=== PATIENT | male | born 1990 | race African-American/Black ===

== ENCOUNTER 2016-05-09 16:22 | Inpatient (IN) | payer OTHER ==
[~2016-05-09] VITALS: Ht 185.4 cm; Wt 91.9 kg
[2016-05-09 16:48] LABS: HEMATOCRIT 40.9 % (38.0-50.0); MCH 26.5 PG (29.0-34.0); MCHC 36.4 G/DL (30.0-36.0); MCV 72.6 FL (86-99); RBC DIS.WIDTH-CV 15.4 % (11.8-14.6); RBC DIS.WIDTH-SD 39.9 % (39-53); RED BLOOD COUNT 5.63 M/uL (4.00-5.50); WHITE BLOOD COUNT 11.8 K/uL (4.1-10.2)
[2016-05-09 16:52] LABS: CHLORIDE 105 mEq/L (99-109); POTASSIUM 4.5 mEq/L (3.7-5.4); SODIUM 141 mEq/L (136-147)
[2016-05-09 16:54] LABS: GLUCOSE 153 mg/dL (70-99)
[2016-05-09 16:55] LABS: ANION GAP 14 MEQ/L (2-14)
[2016-05-09 16:56] LABS: TOTAL BILIRUBIN 0.7 mg/dL (0.0-1.0)
[2016-05-09 16:57] LABS: SERUM ETHYL ALCOHOL < 10 mg/dL
[2016-05-09 16:58] LABS: ADD MIUA? YES; BILIRUBIN NEGATIVE; BLOOD NEGATIVE; COLOR YELLOW ((YELLOW)); GLUCOSE (STRIP) NEGATIVE; KETONES NEGATIVE; LEUKOCYTES NEGATIVE; NITRITE NEGATIVE; PROTEIN (STRIP) 30; SPECIFIC GRAVITY 1.017 (1.000-1.030); UROBILINOGEN 0.2 MG/DL (0.2-1.0)
[2016-05-09 16:58] LABS: ALKALINE PHOSPHATASE 60 IU/L (3-129)
[2016-05-09 16:59] LABS: UREA NITROGEN (BUN) 25 mg/dL (9-23)
[2016-05-09 17:00] LABS: GFR ESTIMATE (CALCULATED) 25 mL/min/
[2016-05-09 17:01] LABS: CREATINE KINASE 381 IU/L (1-294)
[2016-05-09 17:04] LABS: BACTERIA NONE SEEN /HPF; EPITHELIAL CELLS NONE SEEN /HPF; MUCUS TRACE /LPF; RED BLOOD CELLS 0-5 /HPF (0-5); WHITE BLOOD CELLS 0-5 /HPF (0-5)
[2016-05-09 17:06] LABS: AMPHETAMINE NEGATIVE (500 ng/mL); BARBITURATES NEGATIVE (200 ng/mL); BENZODIAZEPINES NEGATIVE (150 ng/mL); COCAINE PRESUMPTIVE POSITIVE (150 ng/mL); INTERNAL CONTROLS VALID? YES; METHADONE NEGATIVE (200 ng/mL); METHAMPHETAMINE PRESUMPTIVE POSITIVE (500 ng/mL); OPIATES (MORPHINE) PRESUMPTIVE POSITIVE (100 ng/mL); OXYCODONE NEGATIVE (100 ng/mL); PHENCYCLIDINE NEGATIVE (25 ng/mL); PROPOXYPHENE NEGATIVE (300 ng/mL); THC CANNABINOIDS NEGATIVE (50 ng/mL); TRICYCLIC ANTIDEPRESSANTS NEGATIVE (300 ng/mL)
[2016-05-09 17:07] LABS: ADD MEDTOX COMMENT Y
[2016-05-09 17:28] LABS: HEMATOLOGY COMMENT 1 SMEAR COMPATIBLE; PLATELET COUNT 136 K/uL (156-360)
[2016-05-09] MEDS ORDERED: ACYCLOVIR200 MG PO (21:24)
[2016-05-09 21:25] LABS: APPEARANCE CLEAR/COLORLESS
[2016-05-09 21:26] LABS: RED CELL AREA COUNTED 18; RED CELL COUNT 0 /MM^3 (0-1); RED CELL DILUTION 1; WBC AREA COUNTED 18; WBC DILUTION 1; WHITE CELL COUNT 5 /MM^3 (0-5); WHITE CELL RAW COUNT 9
[2016-05-09 21:45] LABS: CSF EOSINOPHILS 0 % (0-25); MONO RAW COUNT 67; MONONUCLEAR WBC'S 100 % (50-90); POLYNUCLEAR WBC'S 0 % (0-3)
[2016-05-09 22:36] LABS: TROP-I INTERPRETATION NEGATIVE; TROPONIN-I 0.07 ng/mL (0.0-0.30)
[2016-05-09 23:00] VITALS: BP 108/71
[2016-05-10 06:20] LABS: ALKALINE PHOSPHATASE 41 IU/L (3-129); ANION GAP 9 MEQ/L (2-14); CHLORIDE 110 MEQ/L (99-109); POTASSIUM 3.8 MEQ/L (3.7-5.4); SAMPLE HEMOLYSIS CHECK 0; SAMPLE ICTERIC CHECK 0; SAMPLE LIPEMIA CHECK 0; SODIUM 142 MEQ/L (136-147); TOTAL BILIRUBIN 0.7 MG/DL (0.0-1.0); UREA NITROGEN (BUN) 18 mg/dL (9-23)
[2016-05-10 06:34] LABS: GFR ESTIMATE (CALCULATED) > 59 mL/min/; GLUCOSE 87 mg/dL (70-99)
[2016-05-10 06:47] LABS: TROP-I INTERPRETATION NEGATIVE; TROPONIN-I 0.06 ng/mL (0.0-0.30)
[2016-05-10 06:51] LABS: HEMATOCRIT 36.5 % (38.0-50.0); MCH 26.7 PG (29.0-34.0); MCHC 35.6 G/DL (30.0-36.0); MCV 75.1 FL (86-99); RBC DIS.WIDTH-CV 15.4 % (11.8-14.6); RBC DIS.WIDTH-SD 41.9 % (39-53); RED BLOOD COUNT 4.86 M/uL (4.00-5.50); WHITE BLOOD COUNT 8.9 K/uL (4.1-10.2)
[2016-05-10 06:55] LABS: CK-MB 21.3 ng/mL (0.0-4.9)
[2016-05-10 06:58] LABS: TOTAL CK 1619 IU/L (1-294)
[2016-05-10 06:59] LABS: CREATINE KINASE 1619 IU/L (1-294)
[2016-05-10 07:40] LABS: PLATELET COUNT 128 K/uL (156-360)
[2016-05-10 08:26] VITALS: BP 131/82
[2016-05-10 11:12] LABS: ALKALINE PHOSPHATASE 41 IU/L (3-129); ANION GAP 9 MEQ/L (2-14); CHLORIDE 110 MEQ/L (99-109); GFR ESTIMATE (CALCULATED) > 59 mL/min/; GLUCOSE 79 mg/dL (70-99); POTASSIUM 3.9 MEQ/L (3.7-5.4); SAMPLE HEMOLYSIS CHECK 0; SAMPLE ICTERIC CHECK 0; SAMPLE LIPEMIA CHECK 0; SODIUM 142 MEQ/L (136-147); TOTAL BILIRUBIN 0.7 MG/DL (0.0-1.0); UREA NITROGEN (BUN) 17 mg/dL (9-23)
[2016-05-10 11:15] LABS: CK-MB 15.5 ng/mL (0.0-4.9)
[2016-05-10 11:20] LABS: TROP-I INTERPRETATION NEGATIVE; TROPONIN-I 0.04 ng/mL (0.0-0.30)
[2016-05-10 11:59] VITALS: BP 127/67
[2016-05-10 12:17] LABS: HBSG INDEX 0.18; HPCA INDEX 0.12
[2016-05-10 12:18] LABS: ANTI-HEPATITIS A VIRUS (IGM) Nonreactive
[2016-05-10 12:19] LABS: ANTI-HEPATITIS B CORE (IGM) Nonreactive; HBC IgM INDEX 0.08; HIV INDEX 0.06; HIV-1/2 AB/AG COMBO Nonreactive
[2016-05-10 13:37] LABS: TOTAL CK 1470 IU/L (1-294)
[2016-05-10 13:41] LABS: CREATINE KINASE 1470 IU/L (1-294)
[2016-05-10 15:42] VITALS: BP 133/80
[2016-05-10 19:36] VITALS: BP 128/75
[2016-05-10 23:42] VITALS: BP 126/79
[2016-05-11 07:33] VITALS: BP 132/85
[2016-05-11 10:15] LABS: HEMATOCRIT 35.4 % (38.0-50.0); MCH 26.8 PG (29.0-34.0); MCHC 35.9 G/DL (30.0-36.0); MCV 74.8 FL (86-99); RBC DIS.WIDTH-CV 15.3 % (11.8-14.6); RBC DIS.WIDTH-SD 41.8 % (39-53); RED BLOOD COUNT 4.73 M/uL (4.00-5.50)
[2016-05-11 10:18] LABS: WHITE BLOOD COUNT 4.9 K/uL (4.1-10.2)
[2016-05-11 10:33] LABS: CK-MB 5.6 ng/mL (0.0-4.9)
[2016-05-11 10:57] LABS: PLATELET COUNT 141 K/uL (156-360)
[2016-05-11 11:02] LABS: ANION GAP 6 MEQ/L (2-14); CHLORIDE 106 MEQ/L (99-109); GFR ESTIMATE (CALCULATED) > 59 mL/min/; GLUCOSE 95 mg/dL (70-99); POTASSIUM 3.9 MEQ/L (3.7-5.4); SAMPLE HEMOLYSIS CHECK 0; SAMPLE ICTERIC CHECK 0; SAMPLE LIPEMIA CHECK 0; SODIUM 140 MEQ/L (136-147); TOTAL CK 1215 IU/L (1-294); UREA NITROGEN (BUN) 10 mg/dL (9-23)
[2016-05-11 11:03] LABS: CREATINE KINASE 1215 IU/L (1-294)
[2016-05-11 11:26] VITALS: BP 140/86
== END 2016-05-11 15:04 | disposition home or self-care (01) | DRG 918 ==
LOC: EME 16:22 → EDBD 16:22 → EDOF 21:21 → 5SOUTH 21:21
PROVIDERS: Emergency Medicine; Hospitalist; Internal Medicine
DX: T40.601A Poisoning by unspecified narcotics, accidental (unintentional), initial encounter (principal); M62.82 Rhabdomyolysis; N17.9 Acute kidney failure, unspecified; T40.5X1A Poisoning by cocaine, accidental (unintentional), initial encounter; D69.6 Thrombocytopenia, unspecified; R45.6 Violent behavior; R41.82 Altered mental status, unspecified
CPT/HCPCS: 70450; 70553; 71010; 80048; 80053; 80074; 81003; 82550; 82550 91; 82553; 82945; 84157; 84484; 84999; 85027; 86703; 87040; 87070; 87205; 89051; 93005; 99281; 99285; G0480; J1630; J1644; J1885; J2060; J7030; S0028